=== PATIENT | male | born 1955 | race Caucasian/White ===

== ENCOUNTER 2021-05-22 11:24 | Emergency (ER) | payer MEDICARE, OTHER, SELFPAY ==
--- NOTE | 2021-05-22 | ECG_ITS ---
Test Reason : UPPER RESP SYSMTOMS Blood Pressure : / mmHG Vent. Rate : 100 BPM Atrial Rate : 100 BPM P-R Int : 130 ms QRS Dur : 094 ms QT Int : 340 ms P-R-T Axes : -29 -17 002 degrees QTc Int : 438 ms Sinus rhythm with frequent Premature ventricular complexes Minimal voltage criteria for LVH, may be normal variant ( R in aVL ) Left axis deviation Borderline ECG When compared with ECG of 04-JAN-2019 10:38, Premature ventricular complexes are now Present Referred By: Generic ED Physician Electronically Signed By:ANUSHKA CEDENO MD
--- NOTE | ~2021-05-22 | XR_ITS ---
EXAMINATION: XR CHEST CLINICAL INFORMATION: Fever, cough, left-sided rales. History lung cancer. COMPARISON: Chest radiographs 01/04/2019, 12/23/2018, 09/12/2018, CT chest noncontrast 05/15/2018. TECHNIQUE: 2 views of the chest were obtained. FINDINGS: There are surgical clips posterior left hilum. The lungs are clear. The vascularity is normal. There is no airspace consolidation or groundglass opacity. No effusion. Posterior costophrenic sulci are clear. Heart is normal in size. The visualized hilar and mediastinal contours and bony structures are stable. XR/XR chest 2V IMPRESSION: Lungs clear. No acute intrathoracic disease.
[2021-05-22 11:30] VITALS: BP 132/85; PULSE 126; RESP 18; TEMP 37; O2SAT 96; BMI 27.1
--- NOTE | 2021-05-22 13:33 | ED.URI ---
HPI - URI/Sore Throat General Chief Complaint: Upper Respiratory Symptoms Stated Complaint: flu like sypmtoms, fever and chills Time Seen by Provider: 05/22/21 13:33 Source: patient Mode of arrival: ambulatory Limitations: no limitations History of Present Illness HPI Narrative: patient had COVID in August. Now with cough and fever. Patient is concerned that he is having fever. patient has not been vaccinated against COVID. MD elicited complaint: fever and cough Onset (ago): day(s) Consistency: constant Severity: mild Associated symptoms: fever, chills, cough and shortness of breath Related Data Previous Rx's Medication Instructions Recorded levofloxacin 500 mg tablet 500 mg PO DAILY #7 tab 05/22/21 Allergies Allergy/AdvReac Type Severity Reaction Status Date / Time No Known Allergies Allergy Unverified 03/24/20 19:33 [No Known Allergies*] Review of Systems Constitutional: Constitutional: Reports no additional constitutional complaints Eyes: Eyes: Reports no additional eye complaints ENT: Denies dizziness Cardiovascular: Cardiovascular: Reports no additional cardiovascular complaints Respiratory: Respiratory: Reports as per HPI Gastrointestinal: Gastrointestinal: Reports no additional gastrointestinal complaints Musculoskeletal: Musculoskeletal: Reports no additional musculoskeletal complaints Integumentary/Breasts: Skin/Breast: Denies rash Neurologic: Reports system reviewed and no additional complaints, except as documented, Denies dizziness and Denies Sensory deficit (Neuro) Psychiatric: Psychiatric: Denies anxiety PMFSH Past Medical History Medical History (Updated 05/22/21 @ 17:57 by Stone Camacho MD) COVID-19 Hypertension Lung cancer Surgical History (Updated 05/22/21 @ 11:31 by Tamie Bowling RN) S/P lobectomy of lung Social History Social History Advance Directives: No Advance Directives Information Provided: No Physical Exam Vital Signs: Vital Signs: Last Vital Signs Temp 98.7 F 05/22/21 14:31 Pulse 88 05/22/21 14:31 Resp 20 05/22/21 14:31 BP 138/81 05/22/21 14:31 Pulse Ox 97 05/22/21 14:31 Body Mass Index 27.1 Const: General: healthy appearing Nutritional Appearance: average body habitus Orientation/consciousness: oriented to person and patient oriented x3 Limitations: no limitations HENMT: Head: Yes normal to inspection Ears: external ears normal General nose exam: Normal external nose present Mouth: Normal oral and palatal mucosa present and oropharynx normal Throat: Yes posterior oropharynx normal Eyes: General: appearance normal, both eyes and all related structures Neck: Other: supple Neck: Yes normal visual inspection Chest: Chest palpation & inspection: normal inspection of the chest Resp: Other: left sided rales Cardio: Other: IRRR tachycardia GI: Inspection: Yes normal to inspection Palpation (GI): Soft to palpation, nontender and No hepatosplenomegaly present Auscultation: normal bowel sounds : General: Yes no CVA tenderness Back/Spine/Pelvis: Back: no CVA tenderness Skin: General skin exam: no rashes or lesions noted Neuro: General: oriented to person and patient oriented x3 Cranial nerves: Yes CN's II-XII intact bilaterally Motor exam (neuro): 5/5 motor strength present throughout Sensory Exam: No Sensory deficit (Neuro) Extrem: General: Yes normal to inspection Psych: Appearance: grossly normal Course Reevaluation(s) Reevaluation #1: patient is nontoxic appearing, he describes URI but has a history of mutiple pneumonias, lung cancer and has had fever. Despite his negative work up he has WBC of 16k will place on levaquin for 7 days Time: 17:54 MDM - URI/Sore Throat Lab Data Result diagrams: 05/22/21 15:03 05/22/21 15:03 Labs: Lab Results 05/22/21 05/22/21 05/22/21 Range/Units 14:28 15:03 15:03 WBC 16.6 H (4.8-10.8) X10*3/uL RBC 5.24 (4.60-5.80) X10*6/uL Hgb 16.5 (14.0-18.0) g/dl Hct 47.4 (42.0-52.0) % MCV 90.5 (80.0-98.0) fL MCH 31.5 (27.0-33.0) pg MCHC 34.8 (31.0-36.0) g/dl RDW 12.4 (11.0-16.0) % Plt Count 208 (160-400) X10*3/uL MPV 8.3 L (9.4-12.4) fL Immature Gran % (Auto) 0.4 (0.0-0.4) % Neut % (Auto) 83.0 H (45-73) % Lymph % (Auto) 10.9 L (20-40) % [place] % (Auto) 5.4 (2-11) % Eos % (Auto) 0.1 (0-4) % Baso % (Auto) 0.2 (0-2) % Lymph # (Auto) 1.8 (1.2-4.9) X10*3/uL [place] # (Auto) 0.9 (0.1-1.2) X10*3/uL Eos # (Auto) 0.0 (0.0-0.4) X10*3/uL Baso # (Auto) 0.0 (0.0-0.2) X10*3/uL Abs Immat Gran (auto) 0.07 H (0.00-0.03) X10*3/uL Absolute Neuts (auto) 13.8 H (2.0-8.3) x10*3/uL Absolute Nucleated RBC 0.000 (0.0-0.012) X10*3/uL Nucleated RBC % (auto) 0.0 (0.0-0.2) /100WBC Sodium 139 (135-145) mmol/L Potassium 3.8 (3.3-5.1) mmol/L Chloride 100 (96-108) mmol/L Carbon Dioxide 27 (22-29) mmol/L Anion Gap 16 (12-20) BUN 13 (9-16) mg/dL Creatinine 1.05 (0.5-1.4) mg/dL Estim Creat Clear Calc 75.9 Estimated GFR > 60 Random Glucose 89 (60-115) mg/dL Calcium 9.4 (8.4-10.2) mg/dL Troponin I High Sens (<3.5-35.0) ng/L Urine Color Urine Appearance Urine pH (5.0-8.0) Ur Specific [place] (1.005-1.025) Urine Protein (NEG-TRACE) MG/DL Urine Glucose (UA) (NEG) MG/DL Urine Ketones (NEG) MG/DL Urine Blood (NEG) Urine Nitrite (NEG) Ur Leukocyte Esterase (NEG) Urine RBC (0) /HPF Urine WBC (0-4) /HPF Ur Squamous Epith Cells /LPF Urine Bacteria /LPF COVID-19 ([facility]) Negative (Negative) COVID-19 Clin Com See Note 05/22/21 05/22/21 Range/Units 15:03 17:39 WBC (4.8-10.8) X10*3/uL RBC (4.60-5.80) X10*6/uL Hgb (14.0-18.0) g/dl Hct (42.0-52.0) % MCV (80.0-98.0) fL MCH (27.0-33.0) pg MCHC (31.0-36.0) g/dl RDW (11.0-16.0) % Plt Count (160-400) X10*3/uL MPV (9.4-12.4) fL Immature Gran % (Auto) (0.0-0.4) % Neut % (Auto) (45-73) % Lymph % (Auto) (20-40) % [place] % (Auto) (2-11) % Eos % (Auto) (0-4) % Baso % (Auto) (0-2) % Lymph # (Auto) (1.2-4.9) X10*3/uL [place] # (Auto) (0.1-1.2) X10*3/uL Eos # (Auto) (0.0-0.4) X10*3/uL Baso # (Auto) (0.0-0.2) X10*3/uL Abs Immat Gran (auto) (0.00-0.03) X10*3/uL Absolute Neuts (auto) (2.0-8.3) x10*3/uL Absolute Nucleated RBC (0.0-0.012) X10*3/uL Nucleated RBC % (auto) (0.0-0.2) /100WBC Sodium (135-145) mmol/L Potassium (3.3-5.1) mmol/L Chloride (96-108) mmol/L Carbon Dioxide (22-29) mmol/L Anion Gap (12-20) BUN (9-16) mg/dL Creatinine (0.5-1.4) mg/dL Estim Creat Clear Calc Estimated GFR Random Glucose (60-115) mg/dL Calcium (8.4-10.2) mg/dL Troponin I High Sens 5.8 (<3.5-35.0) ng/L Urine Color YELLOW Urine Appearance CLEAR Urine pH 6.0 (5.0-8.0) Ur Specific [place] 1.020 (1.005-1.025) Urine Protein NEG (NEG-TRACE) MG/DL Urine Glucose (UA) NEG (NEG) MG/DL Urine Ketones NEG (NEG) MG/DL Urine Blood TRACE (NEG) Urine Nitrite NEG (NEG) Ur Leukocyte Esterase NEG (NEG) Urine RBC 0-2 (0) /HPF Urine WBC 0 (0-4) /HPF Ur Squamous Epith Cells NONE /LPF Urine Bacteria TRACE /LPF COVID-19 ([facility]) (Negative) COVID-19 Clin Com Imaging Data Chest x-ray: Radiologist's impression: There are surgical clips posterior left hilum. The lungs are clear. The vascularity is normal. There is no airspace consolidation or groundglass opacity. No effusion. Posterior costophrenic sulci are clear. Heart is normal in size. The visualized hilar and mediastinal contours and bony structures are stable. XR/XR chest 2V IMPRESSION: Lungs clear. No acute intrathoracic disease. ECG Data Attestation: I personally reviewed and interpreted this ECG as follows: Interpretation: sinus rate 100, pvcs, no st or twave changes Discharge Plan Discharge Clinical Impression: Upper respiratory infection Qualifiers: URI type: unspecified URI Qualified Code(s): J06.9 - Acute upper respiratory infection, unspecified Leukocytosis Qualifiers: Leukocytosis type: unspecified Qualified Code(s): D72.829 - Elevated white blood cell count, unspecified Patient Disposition: Home, Self-Care Instructions: Upper Respiratory Infection (ED), Leukocytosis (ED) Prescriptions: New levofloxacin 500 mg tablet 500 mg PO DAILY Qty: 7 RF: 0 Referrals: Frandy Lanza MD [Primary Care Provider] - 5 days
[2021-05-22 14:31] VITALS: BP 138/81; PULSE 88; RESP 20; TEMP 37.1; O2SAT 97
[2021-05-22 14:56] LABS: COVID-19 Test Negative (Negative); IDNOW Serial# 55D5AD1C
[2021-05-22 15:14] LABS: MANUAL DIFF FLAG NO
[2021-05-22 15:15] LABS: Basophils Percent Auto 0.2 % (0-2); Eosinophils Percent Auto 0.1 % (0-4); Hematocrit 47.4 % (42.0-52.0); Hemoglobin 16.5 g/dl (14.0-18.0); Imm Gran Abs Auto 0.07 X10*3/uL (0.00-0.03); Imm Gran Pct Auto 0.4 % (0.0-0.4); Lymphocytes Absolute Auto 1.8 X10*3/uL (1.2-4.9); Lymphocytes Percent Auto 10.9 % (20-40); Mean Corpuscular HGB Conc 34.8 g/dl (31.0-36.0); Mean Corpuscular Hemoglobin 31.5 pg (27.0-33.0); Mean Corpuscular Volume 90.5 fL (80.0-98.0); Mean Platelet Volume 8.3 fL (9.4-12.4); Monocytes Absolute Auto 0.9 X10*3/uL (0.1-1.2); Monocytes Percent Auto 5.4 % (2-11); Neutrophils Absolute Auto 13.8 x10*3/uL (2.0-8.3); Platelet Count 208 X10*3/uL (160-400); Red Blood Count 5.24 X10*6/uL (4.60-5.80); Red Cell Distribution Width 12.4 % (11.0-16.0); White Blood Count 16.6 X10*3/uL (4.8-10.8)
[2021-05-22 15:28] LABS: Anion Gap 16 (12-20); Blood Urea Nitrogen 13 mg/dL (9-16); Calcium 9.4 mg/dL (8.4-10.2); Carbon Dioxide 27 mmol/L (22-29); Chloride 100 mmol/L (96-108); Creatinine Clr Calc Pharmacy 75.9; Estimated Glomerular Filt Rate > 60; Glucose Random 89 mg/dL (60-115); Potassium 3.8 mmol/L (3.3-5.1); Sodium 139 mmol/L (135-145)
[2021-05-22 15:35] LABS: Troponin-I High Sensitivity 5.8 ng/L (<3.5-35.0)
[2021-05-22 17:48] LABS: Appearance Urine CLEAR; Color Urine YELLOW; Glucose Urine UA NEG (NEG); Leukocyte Esterase Urine NEG (NEG); Nitrite Urine NEG (NEG); UACC Culture Trigger NO; Urine Blood TRACE (NEG); Urine Ketones NEG (NEG); Urine Protein NEG (NEG-TRACE)
[2021-05-22 17:55] LABS: Bacteria Urine TRACE /LPF; RBC Urine 0-2 /HPF (0); WBC Urine 0 /HPF (0-4)
[2021-05-22] MEDS: levoFLOXacin 500 MG TABLET PO (18:30)
[2021-05-22 18:32] VITALS: BP 120/76; PULSE 90; RESP 18; O2SAT 97
== END 2021-05-22 18:50 | disposition home or self-care (01) ==
PROVIDERS: Emergency Provider Emergency Medicine; PCP Internal Medicine
DX: J06.9 Acute upper respiratory infection, unspecified (principal); D72.829 Elevated white blood cell count, unspecified; I10 Essential (primary) hypertension; Z85.118 Personal history of other malignant neoplasm of bronchus and lung; Z86.16 Personal history of COVID-19; Z20.822 Contact with and (suspected) exposure to COVID-19
CPT/HCPCS: 0241U; 36415; 71046; 80048; 81001; 84484; 85025; 87040; 87635; 93005; 99283

== ENCOUNTER 2023-08-12 23:15 | Emergency (ER) | payer MEDICARE, OTHER, SELFPAY ==
[2023-08-12 23:19] VITALS: BP 135/82; PULSE 102; RESP 18; TEMP 36.4; O2SAT 96; BMI 27.4
--- NOTE | 2023-08-13 00:31 | ED_ITS ---
HPI - Dental/Oral General Chief complaint: Dental/Oral Stated complaint: Tooth pulled in am/ Still bleeding Time Seen by Provider: 08/13/23 00:31 Source: patient Mode of arrival: ambulatory Limitations: no limitations History of Present Illness HPI Narrative: Patient apparently had right lower premolar tooth extraction earlier at 10:00 today came home continued to bleed applied packing still bleeding not on any anticoagulant no history of similar bleeding in the past and tooth extraction was done Related Data Previous Rx's Medication Instructions Recorded levofloxacin 500 mg tablet 500 mg PO DAILY #7 tabs 05/22/21 Allergies Allergy/AdvReac Type Severity Reaction Status Date / Time No Known Allergies Allergy Unverified 03/24/20 19:33 [No Known Allergies*] Review of Systems 2 Review of Systems: Yes all other systems are reviewed and are negative [facility] Past Medical History Medical History Lung cancer Hypertension COVID-19 Surgical History S/P lobectomy of lung Social History Social History Advance Directives: No Advance Directives Information Provided: No Physical Exam 2 Vital Signs: Vital Signs: Last Vital Signs Temp 97.6 F 08/12/23 23:19 Pulse 102 H 08/12/23 23:19 Resp 18 08/12/23 23:19 BP 135/82 08/12/23 23:19 Pulse Ox 96 08/12/23 23:19 O2 Del Method Room Air 08/12/23 23:19 BMI result Body Mass Index 27.4 HEENT: Teeth image: 1. Bleeding at the place of tooth number 28 extraction Medications Administered Discontinued Medications Generic Name Dose Route Start Last Admin Trade Name Freq PRN Reason Stop Dose Admin Tranexamic Acid 500 mg 08/13/23 00:35 08/13/23 01:03 Tranexamic Acid 1,000 Mg/10 Ml Vial INTRANASAL 08/13/23 00:36 500 mg ONCE ONE Administration Medical Decision Making Medical Decision Making MDM Narrative: Patient gum bleeding post tooth extraction T bag was applied with partial improvement to TXA was upright and patient has stopped bleeding at the side discharge patient home advised to use tea bags or gauze pieces for local pressure Discharge Plan Discharge Clinical Impression: Gums, bleeding Patient Disposition: Home, Self-Care Instructions: Acute Dental Trauma (ED) Additional Instructions: Local care as advised Have ice chips cold water, use tea bags for local compression bleeding from the gums. If bleeding continues come back to the ER/follow with dentist Prescriptions: No Action levofloxacin 500 mg tablet 500 mg PO DAILY Qty: 7 0RF
[2023-08-13] MEDS: Tranexamic Acid 1,000 MG/10 ML VIAL 500 MG INTRANASAL (01:03)
[2023-08-13 01:48] VITALS: BP 136/84; PULSE 84; RESP 16; TEMP 37; O2SAT 99
== END 2023-08-13 01:53 | disposition home or self-care (01) ==
PROVIDERS: Emergency Provider Internal Medicine
DX: K06.8 Other specified disorders of gingiva and edentulous alveolar ridge (principal)
CPT/HCPCS: 99283; 99284

== ENCOUNTER 2024-08-12 08:22 | Emergency (ER) | payer MEDICARE, MEDICAID, SELFPAY ==
[2024-08-12 08:28] VITALS: BP 141/65; PULSE 82; RESP 20; TEMP 36.6; O2SAT 97; BMI 27.6
[2024-08-12 11:02] VITALS: BP 137/80; PULSE 85; RESP 18; TEMP 36.7; O2SAT 95
[2024-08-12] MEDS: Docusate Sodium 100 MG/10 ML LIQUID PO (12:01)
--- NOTE | 2024-08-12 12:21 | ED_ITS ---
HPI - Ear Problem General Chief complaint: Ear Problems Stated complaint: blockage in R ear Time Seen by Provider: 08/12/24 11:41 Source: patient Limitations: no limitations History of Present Illness ED Provider: Cat Quiroz PA-C HPI Narrative: 68-year-old male presents with wax in right ear x1 week. Patient states he is prone to wax buildup, he has been trying to dislodge the wax for a week. Patient has been using [id number] remedies including peroxide. Denies ear pain or fever. Related Data Previous Rx's ?Medication ?Instructions ?Recorded levofloxacin 500 mg tablet 500 mg PO DAILY #7 tabs 05/22/21 Allergies Allergy/AdvReac Type Severity Reaction Status Date / Time No Known Allergies Allergy Verified 08/12/24 08:30 [No Known Allergies*] Review of Systems Review of Systems: Yes all other systems are reviewed and are negative Constitutional: Constitutional: Denies fatigue, Denies fever(s) and Denies headache(s) ENT: Denies dizziness, Denies ear discharge, Denies otalgia, Denies headache(s) and Denies sore throat Cardiovascular: Cardiovascular: Denies dyspnea Respiratory: Respiratory: Denies cough and Denies dyspnea Neurologic: Denies dizziness and Denies headache(s) Endocrine: Endocrine: Denies fatigue PMFSH Past Medical History Attestation statement: The following information was validated with the patient. Medical History Lung cancer Hypertension COVID-19 Surgical History S/P lobectomy of lung Social History Social History Alcohol intake: current Alcohol intake frequency: holidays/special occasions only Smoked in Last 30 Days: No Use of substances other than those prescribed or required for medical reasons: No Advance Directives: No Advance Directives Information Provided: Yes Do you have a plan to hurt others: No Plan Physical Exam Vital Signs: Vital Signs: Last Vital Signs Temp 98.0 F 08/12/24 11:02 Pulse 85 08/12/24 11:02 Resp 18 08/12/24 11:02 BP 137/80 08/12/24 11:02 Pulse Ox 95 08/12/24 11:02 O2 Del Method Room Air 08/12/24 11:02 BMI result Body Mass Index 27.6 Const: Other: Alert well-appearing Orientation/consciousness: patient oriented x3 HEENT: Other: Cerumen noted right external ear canal, no tragal tenderness Resp: Effort & Inspection: normal respiratory effort Cardio: Other: Normal peripheral perfusion Skin: Other: Warm dry no rash Neuro: General: patient oriented x3, gait normal, no focal motor deficits and CN's II-XI intact bilaterally Psych: Other: Cooperative Medications Administered Discontinued Medications Generic Name Dose Route Start Last Admin Trade Name Freq PRN Reason Stop Dose Admin Docusate Sodium 100 mg 08/12/24 11:54 08/12/24 12:01 Docusate Sodium 100 Mg/10 Ml Liquid PO 08/12/24 11:55 100 mg ONCE ONE Administration Procedures Ear Wax Removal Right Ear: Cerumenolytic Used: Colace Results: Re-examined: cerumen removed completely TM Examination: TM(s) intact, normal appearance Ear Canal Exam: atraumatic Patient Tolerated Procedure: well Complications: no problems Technique: ear canal curetted Medical Decision Making Medical Decision Making MDM Narrative: 68-year-old male presents with wax in right ear x1 week. Patient states he is prone to wax buildup, he has been trying to dislodge the wax for a week. Patient has been using [id number] remedies including peroxide. Denies ear pain or fever. Problem: Cerumen impaction History: Per patient I have considered the following differential diagnoses: Cerumen impaction, foreign body, OM, OE Plan: Patient has a simple cerumen impaction, we will soak with docusate, then dislodge the wax. He has no pain to suggest otitis media, the external ear canal is not erythematous/no exudate to suggest otitis externa Discharge Plan Discharge Clinical Impression: Impacted cerumen of right ear Patient Disposition: Home, Self-Care Additional Instructions: You had wax in the right ear that was removed. Follow up with your primary care provider as needed. Prescriptions: No Action levofloxacin 500 mg tablet 500 mg PO DAILY Qty: 7 0RF Print Language: Micronesian
[2024-08-12 12:25] VITALS: BP 137/80; PULSE 85; RESP 18; TEMP 36.7; O2SAT 95
== END 2024-08-12 12:26 | disposition home or self-care (01) ==
PROVIDERS: Emergency Provider Emergency Medicine; PCP Internal Medicine
DX: H61.21 Impacted cerumen, right ear (principal)
CPT/HCPCS: 69209; 99283; 99284